=== PATIENT | female | born 1955 | race African-American/Black ===

== ENCOUNTER 2023-12-07 11:21 | Emergency (ER) | payer MEDICAID ==
[~2023-12-07] VITALS: Ht 172.7 cm; Wt 150.0 kg
[2023-12-07 11:32] VITALS: O2SAT 100
[2023-12-07] MEDS ORDERED: CYCL5TAB MT (14:13)
[2023-12-07 14:44] VITALS: BP 167/82; PULSE 64; RESP 18; TEMP 98.7
== END 2023-12-07 15:00 | disposition home or self-care (01) ==
LOC: ER 11:48
DX: I10 Essential (primary) hypertension (principal); M79.18 Myalgia, other site; E11.9 Type 2 diabetes mellitus without complications; E78.00 Pure hypercholesterolemia, unspecified; Z90.710 Acquired absence of both cervix and uterus
CPT/HCPCS: 99283